=== PATIENT | male | born 1985 | race American Indian/Alaskan Native ===

== ENCOUNTER 2016-12-02 01:24 | Emergency (ER) | payer OTHER ==
[2016-12-02 01:40] VITALS: BP 138/94
--- NOTE | 2016-12-02 03:33 | Ultrasound Report ---
FINAL REPORT PROCEDURE: US TESTICULAR DOPPLER COMP TECHNIQUE: Real-time ragsdale-scale and color flow Doppler sonography in multiple planes of the scrotum, testicles, and epididymes was performed. Velocity spectral waveform analysis Doppler imaging of the arterial inflow and venous outflow of the testicles was performed with image documentation. CPT 80423 and 25068 HISTORY: testicular pain COMPARISON: No prior studies are available for comparison. FINDINGS: RIGHT TESTICLE: Size: 4.4 x 2.3 x 3.5 cm . Appearance: Normal size and echotexture . Arterial blood flow: Normal spectral waveforms, flow velocities and color flow images.. Venous blood flow: Normal spectral waveforms and color flow images. Right epididymis: Normal size and echotexture . Hydrocele: Along the inferior margin of the testicle within the scrotal sac there is an area of mixed echogenicity, a varicocele is suspected. This area measures up to 3.6 centimeters.. LEFT TESTICLE Size: 4.3 x 2 by 3 cm . Appearance: Normal size and echotexture . Arterial blood flow: Normal spectral waveforms, flow velocities and color flow images.. Venous blood flow: Normal spectral waveforms and color flow images. Leftepididymis: Normal size and echotexture . Hydrocele: Along the inferior margin the testicle within the scrotum sac there is an area of mixed echogenicity, a varicocele is suspected. This area measures up to 2.9 centimeters.. IMPRESSION: The testicles have a normal size with appropriate blood flow. Bilateral small varicoceles are suspected.
[2016-12-02 03:36] LABS: Bilirubin,Urine NEG (Negative); Blood,Urine SM (Negative); Ketones,Urine NEG (Negative); Leukocyte Esterase,Urine NEG (Negative); Mucus,Urine FEW /HPF; Nitrite,Urine NEG (Negative); Protein,Urine <15 mg/dL mg/dL (Negative); RBC,Urine < 1.0 /HPF (0.0-6.0)
== END 2016-12-02 02:02 | disposition left against medical advice (07) ==
LOC: ED 01:24
DX: M79.606 Pain in leg, unspecified (principal); Z53.21 Procedure and treatment not carried out due to patient leaving prior to being seen by health care provider
CPT/HCPCS: 81001; 93975